=== PATIENT | female | born 1995 | race Caucasian/White ===

== ENCOUNTER 2019-02-02 11:00 | Observation (INO) | payer MEDICAID ==
[~2019-02-02] VITALS: Ht 162.6 cm; Wt 68.0 kg
[2019-02-02] MEDS ORDERED: PREN-380 PO (12:54)
[2019-02-02 13:51] LABS: BASOPHILS % (AUTO) 0.3 % (0.0-2.0); EOSINOPHILS # (AUTO) 0.2 K/uL (0-0.4); EOSINOPHILS % (AUTO) 1.9 % (0.0-4.0); HEMATOCRIT 35.8 % (36-48); HEMOGLOBIN 12.2 g/dL (12.0-16.0); LYMPHOCYTES # (AUTO) 2.1 K/uL (2.5-16.5); LYMPHOCYTES % (AUTO) 20.8 % (20.5-51.1); MEAN CORPUSCULAR HEMOGLOBIN 32 pg (27-31); MEAN CORPUSCULAR HGB CONC 34 g/dL (33-37); MEAN CORPUSCULAR VOLUME 94.9 fL (80-94); MONOCYTES # (AUTO) 0.4 K/uL (0.8-1.0); MONOCYTES % (AUTO) 3.6 % (1.7-9.3); NEUTROPHILS # (AUTO) 7.4 K/uL (1.8-7.7); NEUTROPHILS % (AUTO) 73.4 % (42.2-75.2); PLATELET COUNT (AUTO) 273 K/uL (140-450); RED BLOOD CELL COUNT(AUTO) 3.78 MIL/uL (4.20-5.40); RED CELL DISTRIBUTION WIDTH 14.9 % (11.6-13.7); WHITE BLOOD COUNT (AUTO) 10.2 K/uL (4.8-10.8)
[2019-02-02 14:29] LABS: ANION GAP 11.2 (8-16); CARBON DIOXIDE 26.5 mmol/L (21-32); CREATININE 0.6 mg/dL (0.6-1.3); POTASSIUM 3.7 mmol/L (3.5-5.1)
[2019-02-02 14:35] LABS: TOTAL BILIRUBIN 0.3 mg/dL (0.0-1.0)
[2019-02-02 15:49] LABS: URIC ACID 3.7 mg/dL (2.6-7.2)
--- NOTE | 2019-02-03 08:15 | NUR ---
PATIENT HAS BEEN SCREENED AND CATEGORIZED LOW NUTRITION RISK. PATIENT WILL BE SEEN WITHIN 7 DAYS OF ADMISSION. 02/08/[address]
== END 2019-02-03 14:25 | disposition home or self-care (01) ==
LOC: MFCC 11:00
PROVIDERS: ADMIT Obstetrics & Gynecology; ATTEND Obstetrics & Gynecology
DX: O26.892 Other specified pregnancy related conditions, second trimester (principal); R03.0 Elevated blood-pressure reading, without diagnosis of hypertension; R51 Headache; Z3A.24 24 weeks gestation of pregnancy
CPT/HCPCS: 36415; 76805; 80053; 82570; 84550; 85025; 85384; 86886; 86900; 86901; G0378; Q0092; 59025